=== PATIENT | male | born 1950 | race Caucasian/White ===

== ENCOUNTER 2023-12-08 12:43 | Emergency (ER) | payer MEDICARE, OTHER ==
[~2023-12-08] VITALS: Ht 167.6 cm; Wt 77.1 kg
[2023-12-08] MEDS ORDERED: LORATADINE 10 MG TABLET ONE (13:48)
[2023-12-08] MEDS: LORATADINE 10 MG TABLET PO SCH (13:56)
[2023-12-08 14:13] VITALS: BP 156/68; TEMP 98.3; O2SAT 98
== END 2023-12-08 14:34 | disposition home health service (06) ==
LOC: ER 12:50
DX: R09.81 Nasal congestion (principal); I10 Essential (primary) hypertension; E11.9 Type 2 diabetes mellitus without complications; K21.9 Gastro-esophageal reflux disease without esophagitis; G47.00 Insomnia, unspecified; F41.9 Anxiety disorder, unspecified; F32.A Depression, unspecified